=== PATIENT | female | born 1940 | race Caucasian/White ===

== ENCOUNTER 2023-08-02 09:20 | Observation (INO) | payer MEDICARE ==
[2023-08-02 10:37] LABS: Absolute Neutrophil Ct (ANC) 9.64 x10^3/uL (1.4-6.9); BASOPHIL % 0.4 % (0.0-0.4); Basophil (Absolute #) 0.04 x10^3/uL (0-0.4); Eosinophil % 0.4 % (0.00-5.0); Eosinophil (Absolute #) 0.05 x10^3/uL (0-0.5); Hematocrit 30.2 % (35-47); Hemoglobin 9.9 g/dL (12.0-16.0); IMMATURE GRAN # 0.04 x10^3u/L (0.00-0.03); IMMATURE GRAN % 0.4 % (0.00-0.4); Lymphocyte (Absolute #) 0.73 x10^3/uL (1.0-4.6); Lymphocytes % 6.5 % (24.0-44.0); Mean Cell Volume 94.7 fL (78-100); Mean Corpuscular Hgb Concent. 32.8 g/dL (32-36); Mean Platelet Volume 9.8 fL (7.5-11.0); Monocyte (Absolute #) 0.77 x10^3/uL (0.0-1.3); Monocytes % 6.8 % (0.0-12.0); Neutrophil % 85.5 % (36.0-66.0); Platelet Count 298 x10^3/uL (150-450); Red Blood Count 3.19 x10^6/uL (4.1-5.4); Red Cell Distribution Width 13.3 % (11.5-14.0); White Blood Count 11.3 x10^3/uL (4.0-10.5)
[2023-08-02 11:04] LABS: ALBUMIN 4.1 g/dL (3.5-5.0); ANION GAP 8.1 MEQ/L (5-15); BILIRUBIN,TOTAL 1.1 mg/dL (0.2-1.3); Calcium 8.9 mg/dL (8.4-10.2); Creatinine 1 0.96 mg/dL (0.52-1.04); EST GLOMERULAR FILTRATION RATE 59.1 ML/MIN; Potassium 4.2 mmol/L (3.5-5.1); Total Protein 8.2 g/dL (6.3-8.2)
--- NOTE | 2023-08-02 11:12 | ERPHSYRPT ---
- History of Present Illness Time Seen by Provider: 08/02/23 09:45 Source: patient Exam Limitations: no limitations Patient Subjective Stated Complaint: Pt c/o of tachycardia and feeling like her heart is going to explode Triage Nursing Assessment: Pt brought to the ER by EMS, hypertensive, tachycardic, denies pain, states that she feels a lot better than she did earlier this morning, pulses normal, edema to marilu lower ext which she states just started this week, appears weak and tired, wheezing heard in the left upper lobe Physician History: Patient 73-year-old female presents to our ED via EMS for evaluation of atrial fibrillation. Patient complains of heart palpitations and fast heart rate. Patient states "I feel like my heart will explode". Patient hypertensive upon arrival. No acute distress. Symptoms are mild to moderate in intensity. No specific worsening or improving factors. Patient voices no other complaints or concerns at this time. Portions of this note were created with voice recognition technology. There may be grammatical, spelling, punctuation or sound alike errors Timing/Duration: today Severity: moderate Modifying Factors: Improves With: nothing Associated Symptoms: denies symptoms Allergies/Adverse Reactions: No Known Drug Allergies Allergy (Verified 08/02/23 09:49) Home Medications: Amlodipine Besylate 5 mg [Norvasc 5 mg] 5 mg PO DAILY 08/02/23 [History] Aspirin EC 81 mg [Ecotrin 81 mg] 81 mg PO DAILY 08/02/23 [History] Atorvastatin Calcium [Lipitor] 20 mg PO DAILY 08/02/23 [History] Metformin HCl 850 mg [Glucophage 850 MG] 850 mg PO BID 08/02/23 [History] Metoprolol Tartrate 50 mg [Lopressor 50 MG] 50 mg PO BID 08/02/23 [History] Warfarin Sodium 5 mg [Jantoven] 0 mg PO DAILY 08/02/23 [History] Hx Influenza Vaccination/Date Given: No Hx Pneumococcal Vaccination/Date Given: No Travel Risk - International Travel Have you traveled outside of the country in past 3 weeks: No - Coronavirus Screening Are you exhibiting any of the following symptoms?: No Close contact with a COVID-19 positive Pt in past 14-21 Days: No - Vaccine Status Have you recieved a Covid-19 vaccination: No - Review of Systems Constitutional: No Symptoms, No Fever, No Chills Eyes: No Symptoms Ears, Nose, & Throat: No Symptoms Respiratory: No Symptoms, No Cough, No Dyspnea Cardiac: No Symptoms, No Chest Pain, No Edema, No Syncope Abdominal/Gastrointestinal: No Symptoms, No Abdominal Pain, No Nausea, No Vomiting, No Diarrhea Genitourinary Symptoms: No Symptoms, No Dysuria Musculoskeletal: No Symptoms, No Back Pain, No Neck Pain Skin: No Symptoms, No Rash Neurological: No Symptoms, No Dizziness, No Focal Weakness, No Sensory Changes Psychological: No Symptoms Endocrine: No Symptoms Hematologic/Lymphatic: No Symptoms Immunological/Allergic: No Symptoms All Other Systems: Reviewed and Negative - Past Medical History Pertinent Past Medical History: Yes Cardiac History: Arrhythmia, Hypertension Endocrine Medical History: Diabetes Type II - Past Surgical History Past Surgical History: Yes Gastrointestinal: Appendectomy Female Surgical History: Hysterectomy, Dilation & Curettage, Section - Social History Smoking Status: Current every day smoker Exposure to second hand smoke: Yes Drug Use: none Patient Lives Alone: Yes - Nursing Vital Signs Nursing Vital Signs: Initial Vital Signs O2 Sat by Pulse Oximetry 96 08/02/23 09:21 Pain Scale Pain Intensity 0 - Physical Exam General Appearance: no apparent distress, alert Eye Exam: PERRL/EOMI, eyes nml inspection Ears, Nose, Throat Exam: normal ENT inspection, TMs normal, pharynx normal, moist mucous membranes Neck Exam: normal inspection, non-tender, supple, full range of motion Respiratory Exam: normal breath sounds, lungs clear, airway intact, No respiratory distress Cardiovascular Exam: regular rate/rhythm, normal heart sounds, normal peripheral pulses Gastrointestinal/Abdomen Exam: soft, normal bowel sounds, No tenderness, No mass Back Exam: normal inspection, normal range of motion, No CVA tenderness, No vertebral tenderness Extremity Exam: normal inspection, normal range of motion, pelvis stable, other (Bilateral lower extremity pitting edema) Neurologic Exam: alert, oriented x 3, cooperative, normal mood/affect, nml cerebellar function, nml station & gait, sensation nml, No motor deficits Skin Exam: normal color, warm, dry, No rash Lymphatic Exam: No adenopathy SpO2 Interpretation: normal SpO2: 94 O2 Delivery: Room Air - Course Nursing assessment & vital signs reviewed: Yes EKG Interpreted by Me: RATE ([id number]), Sinus Tach, NORMAL AXIS, Left Bundle Branch Block - Radiology Exams Chest X-ray Interpretation: Teleradiologist Report (Chest x-ray reveals right minimal and left bibasilar infiltrate possible atelectasis.) Ordered Tests: Active Orders 24 hr Category Date Time Status Splitter Hand STAT Care 08/02/23 10:10 Active EKG-ER Only STAT Care 08/02/23 10:09 Active Pulse Oximetry (ED) STAT Care 08/02/23 10:09 Active CHEST 1 VIEW (PORTABLE) Stat Exams 08/02/23 10:10 Completed CBC W DIFF Stat Lab 08/02/23 10:34 Completed CMP Stat Lab 08/02/23 10:34 Completed MAG [MAGNESIUM] Stat Lab 08/02/23 10:00 Completed NT PRO BNPII Stat Lab 08/02/23 10:34 Completed PHOSPHOROUS Stat Lab 08/02/23 10:00 Completed PROTIME WITH INR Stat Lab 08/02/23 10:00 Completed PTT Stat Lab 08/02/23 10:00 Completed TROPONIN Q4H Lab 08/02/23 10:34 Completed TROPONIN Q4H Lab 08/02/23 14:15 Ordered TROPONIN Q4H Lab 08/02/23 18:15 Ordered Medication Summary Generic Name Dose Route Start Last Admin Trade Name Freq PRN Reason Stop Dose Admin Diltiazem HCl 100 mls @ 5 mls/hr 08/02/23 12:41 Cardizem Drip 100 Mg/100 Ml D5w IV 09/01/23 12:40 .Q20H PRN HEART RATE/ A-FIB Protocol 5 MG/HR Discontinued Medications Generic Name Dose Route Start Last Admin Trade Name Freq PRN Reason Stop Dose Admin Albuterol/Ipratropium 3 ml 08/02/23 12:31 Ipratropium/Albuterol Sulfate 3 Ml Ampul.Neb IH 08/02/23 12:32 STAT ONE Diltiazem HCl 10 mg 08/02/23 12:34 Diltiazem Hcl Iv 5 Mg/Ml Vial IV 08/02/23 12:35 STAT ONE Furosemide 20 mg 08/02/23 11:54 08/02/23 12:00 Furosemide 20 Mg/Vial IV 08/02/23 11:55 20 mg ONCE STA Administration Furosemide Confirm 08/02/23 11:59 Furosemide 20 Mg/Vial Administered 08/02/23 12:00 Dose 20 mg .ROUTE .STK-MED ONE Lab/Rad Data: Laboratory Result Diagrams 08/02/23 10:34 08/02/23 10:34 Laboratory Results 08/02/23 08/02/23 08/02/23 Range/Units 10:34 10:34 10:34 WBC 11.3 H (4.0-10.5) x10^3/uL RBC 3.19 L (4.1-5.4) x10^6/uL Hgb 9.9 L (12.0-16.0) g/dL Hct 30.2 L (35-47) % MCV 94.7 (78-100) fL MCH 31.0 (26-32) pg MCHC 32.8 (32-36) g/dL RDW 13.3 (11.5-14.0) % Plt Count 298 (150-450) x10^3/uL MPV 9.8 (7.5-11.0) fL Gran % 85.5 H (36.0-66.0) % Immature Gran % (Auto) 0.4 (0.00-0.4) % Nucleat RBC Rel Count 0.0 (0.00-0.1) % Eos # (Auto) 0.05 (0-0.5) x10^3/uL Immature Gran # (Auto) 0.04 H (0.00-0.03) x10^3u/L Absolute Lymphs (auto) 0.73 L (1.0-4.6) x10^3/uL Absolute Monos (auto) 0.77 (0.0-1.3) x10^3/uL Absolute Nucleated RBC 0.00 (0.00-0.01) x10^3u/L Lymphocytes % 6.5 L (24.0-44.0) % Monocytes % 6.8 (0.0-12.0) % Eosinophils % 0.4 (0.00-5.0) % Basophils % 0.4 (0.0-0.4) % Absolute Granulocytes 9.64 H (1.4-6.9) x10^3/uL Basophils # 0.04 (0-0.4) x10^3/uL PT (9.4-12.5) SECONDS INR (0.8-3.0) APTT (25.1-36.5) SECONDS Sodium 135 L (137-145) mmol/L Potassium 4.2 (3.5-5.1) mmol/L Chloride 100 (98-107) mmol/L Carbon Dioxide 31 H (22-30) mmol/L Anion Gap 8.1 (5-15) MEQ/L BUN 18 H (7-17) mg/dL Creatinine 0.96 (0.52-1.04) mg/dL Estimated GFR 59.1 ML/MIN Glucose 137 H (74-106) mg/dL Calcium 8.9 (8.4-10.2) mg/dL Phosphorus (2.5-4.5) mg/dL Magnesium (1.6-2.3) mg/dL Total Bilirubin 1.10 (0.2-1.3) mg/dL AST 28 (14-36) U/L ALT 23 (0-35) U/L Alkaline Phosphatase 94 (38-126) U/L Troponin I < 0.012 (0.000-0.034) ng/mL NT-Pro-B Natriuret Pep 5150 (<300) pg/mL Serum Total Protein 8.2 (6.3-8.2) g/dL Albumin 4.1 (3.5-5.0) g/dL 08/02/23 08/02/23 Range/Units 10:00 10:00 WBC (4.0-10.5) x10^3/uL RBC (4.1-5.4) x10^6/uL Hgb (12.0-16.0) g/dL Hct (35-47) % MCV (78-100) fL MCH (26-32) pg MCHC (32-36) g/dL RDW (11.5-14.0) % Plt Count (150-450) x10^3/uL MPV (7.5-11.0) fL Gran % (36.0-66.0) % Immature Gran % (Auto) (0.00-0.4) % Nucleat RBC Rel Count (0.00-0.1) % Eos # (Auto) (0-0.5) x10^3/uL Immature Gran # (Auto) (0.00-0.03) x10^3u/L Absolute Lymphs (auto) (1.0-4.6) x10^3/uL Absolute Monos (auto) (0.0-1.3) x10^3/uL Absolute Nucleated RBC (0.00-0.01) x10^3u/L Lymphocytes % (24.0-44.0) % Monocytes % (0.0-12.0) % Eosinophils % (0.00-5.0) % Basophils % (0.0-0.4) % Absolute Granulocytes (1.4-6.9) x10^3/uL Basophils # (0-0.4) x10^3/uL PT 52.2 H (9.4-12.5) SECONDS INR 5.43 H* (0.8-3.0) APTT 49.3 H (25.1-36.5) SECONDS Sodium (137-145) mmol/L Potassium (3.5-5.1) mmol/L Chloride (98-107) mmol/L Carbon Dioxide (22-30) mmol/L Anion Gap (5-15) MEQ/L BUN (7-17) mg/dL Creatinine (0.52-1.04) mg/dL Estimated GFR ML/MIN Glucose (74-106) mg/dL Calcium (8.4-10.2) mg/dL Phosphorus 3.3 (2.5-4.5) mg/dL Magnesium 1.6 (1.6-2.3) mg/dL Total Bilirubin (0.2-1.3) mg/dL AST (14-36) U/L ALT (0-35) U/L Alkaline Phosphatase (38-126) U/L Troponin I (0.000-0.034) ng/mL NT-Pro-B Natriuret Pep (<300) pg/mL Serum Total Protein (6.3-8.2) g/dL Albumin (3.5-5.0) g/dL - Progress Progress: improved Progress Note: Patient 73-year-old female presents to our ED with A-fib with RVR shortness of breath heart palpitations lower extremity swelling. Lasix administered. Patient currently on Coumadin for A-fib. Patient had an INR check yesterday that was 4 per patient. She held her a.m. dose of Coumadin today. Daughter at bedside. Patient denies chest pain. No nausea vomiting or diaphoresis. Pat ient will be admitted for further evaluation of A-fib with RVR. 08/02/23 12:24 Patient just completed a course of antibiotics for a pneumonia. 08/02/23 12:[address] Agustin at 11:40 who accepts admission to observation. Patient is a 83-year-old female presents to our ED in A-fib with RVR. Bilateral extremity pitting edema. Elevated BNP. Chest x-ray shows infiltrate possible atelectasis. Patient has completed a course of antibiotics for pneumonia. Slight wheezing on exam. CBC reveals leukocytosis 11.3. Hemoglobin 9.4. INR supratherapeutic at 5.43. BNP elevated at 5150. Bilateral lower extremity pitting edema. Patient received a dose of Lasix in our ED. Initial troponin negative. Patient received a Cardizem bolus and infusion. Albuterol administered for wheezing. Patient will require admission. Complexity of problem addressed is high severe exacerbation. Critical care time is 1 hour. Patient required Cardizem drip to rate control her tachycardia. Patient will require ICU admission for further evaluation and treatment. Complexity of data reviewed and analyzed is extensive. Test ordered. Test reviewed and analyzed. Clinical correlation made between findings and history and physical examination. Case and patient management [facility] who accepts admission to observation. Risk complication and or risk morbidity/mortality patient management is high. Patient will require hospitalization for further evaluation and treatment. Time spent to admit patient approximately 20 minutes. Plan of care established for shared decision making. Portions of this note were created with voice recognition technology. There may be grammatical, spelling, punctuation or sound alike errors 08/02/23 12:[address] Ajay Will see patient in: hospital (observation) Counseled pt/family regarding: lab results, diagnosis, rad results - Departure Departure Disposition: Observation Clinical Impression: Atrial fibrillation with RVR, Supratherapeutic INR, Wheezing, Leg swelling, Elevated brain natriuretic peptide (BNP) level Condition: Stable Critical Care Time: No Referrals: SURINDER BRICEÑO, DO [Primary Care Provider] - Follow up/PCP as directed
--- NOTE | 2023-08-02 11:23 | XRAY ---
Indication: Pain. Arrhythmia. Comparison: None Portable chest demonstrates mild right and minimal left bibasilar infiltrates/atelectasis/effusions. Remaining heart and upper lungs unremarkable. Bony thorax intact with osteopenia mild degenerative changes.
[2023-08-02 11:47] LABS: MAGNESIUM 1.6 mg/dL (1.6-2.3); PHOSPHOROUS 3.3 mg/dL (2.5-4.5)
[2023-08-02 11:52] LABS: PROTIME 52.2 SECONDS (9.4-12.5); PTT 49.3 SECONDS (25.1-36.5)
[2023-08-02 11:54] LABS: INR 5.43 (0.8-3.0)
[2023-08-02] MEDS ORDERED: Lasix 20 MG/2 ML IV STA (11:54)
[2023-08-02] MEDS ORDERED: Lasix 20 MG/2 ML ONE (11:59)
[2023-08-02] MEDS ORDERED: DUONEB 0.5-3 MG/3 ml Neb IH ONE (12:31)
[2023-08-02] MEDS ORDERED: Cardizem IV 50 MG/10 ML IV ONE ×2 (12:34→12:51)
[2023-08-02] MEDS ORDERED: CARDIZEM DRIP 100 MG/100 ML D5W 100 ML IV PRN ×2 (12:41→13:58)
[2023-08-02] MEDS ORDERED: CARDIZEM DRIP 100 MG/100 ML D5W 100 ML IV ONE (12:50)
[2023-08-02] MEDS ORDERED: PHARMACY DOSING REQUEST MC ONE (13:24)
--- NOTE | 2023-08-02 13:27 | PCM.HP ---
History of Present Illness - Chief Complaint Date: 08/02/23 History of Present Illness: is a 83 year old female with a pmhx of afib (on coumadin/metoprolol), DM2, HLD, HTN, and h/o of recent admission a week ago at [facility] for AFIB and pneumonia presented to ED 08/02/23 with complaint so shortness of breath and a fast heart rate. Patient states "I felt like my heart was beating so fast it was going to explode. It felt this way last week and I was told it was AFIB so I knew I better come in." Patient reports her AFIB has been managed by her PCP since her heeler retired. She recently switched PCP to Dr. Whitney. Patient also reports she has had exertional shortness of breath since she was diagnosed with pneumonia. She just recently finished antibiotics a few days ago. In ER, patient tachycardic with HR at 126, tachypneic, normotensive, and afebrile. CXR showing mild right and minimal left bibasilar infiltrates/atelectasis/effusions. Recently treated for pneumonia. Lab findings remarkable for leukocytosis with wbc at 11.3, INR at 5.43, sodium at 135, BNP at 5150, and trops wnl. Patient started on cardizem drip, given lasix IV, and duoneb. PCP: Chelo - Review of Systems Constitutional: No Symptoms Eyes: No Symptoms Ears, Nose, & Throat: No Symptoms Respiratory: Cough, Short Of Breath Cardiac: Palpitations, Other (fast heart rate) Abdominal/Gastrointestinal: No Symptoms Genitourinary Symptoms: No Symptoms Musculoskeletal: No Symptoms Skin: No Symptoms Neurological: No Symptoms Psychological: No Symptoms Endocrine: No Symptoms Hematologic/Lymphatic: No Symptoms Immunological/Allergic: No Symptoms Medications & Allergies Home Medications: Home Medication List Amlodipine Besylate 5 mg [Norvasc 5 mg] 5 mg PO DAILY 08/02/23 [History Confirmed 08/02/23] Aspirin EC 81 mg [Ecotrin 81 mg] 81 mg PO DAILY 08/02/23 [History Confirmed 08/02/23] Atorvastatin Calcium [Lipitor] 20 mg PO DAILY 08/02/23 [History Confirmed 08/02/23] Metformin HCl 850 mg [Glucophage 850 MG] 850 mg PO BID 08/02/23 [History Confirmed 08/02/23] Metoprolol Tartrate 50 mg [Lopressor 50 MG] 50 mg PO BID 08/02/23 [History Confirmed 08/02/23] Warfarin Sodium 5 mg [Jantoven] 0 mg PO DAILY 08/02/23 [History Confirmed 08/02] Allergies/Adverse Reactions: Allergies Allergy/AdvReac Type Severity Reaction Status Date / Time No Known Drug Allergies Allergy Verified 08/02/23 09:49 - Past Medical History Past Medical History: Yes Neurological History: No Pertinent History ENT History: No Pertinent History Cardiac History: Arrhythmia, Hypertension Endocrine Medical History: Diabetes Type II - Past Surgical History Past Surgical History: Yes GI Surgical History: Appendectomy Female Surgical History: Hysterectomy, Dilation & Curettage, Section - Social History Smoking Status: Current every day smoker Exposure to second hand smoke: Yes Alcohol: None Drug Use: none - Physical Exam Vital Signs: Vital Signs - 24 hr Temp Pulse Resp BP Pulse Ox 08/02/23 13:08 99 H 139/103 94 L 08/02/23 13:07 94 L 08/02/23 12:57 110 H 20 145/82 97 08/02/23 12:49 94 L 08/02/23 09:23 98.1 F 126 H 21 147/69 94 L 08/02/23 09:21 96 General Appearance: no apparent distress Neurologic Exam: alert, oriented x 3, cooperative Eye Exam: PERRL/EOMI Ears, Nose, Throat Exam: normal ENT inspection Neck Exam: normal inspection Respiratory Exam: crackles/rales (BLL fine crackles) Cardiovascular Exam: tachycardia, irregular, edema (BLE 2+ pitting) Gastrointestinal/Abdomen Exam: soft, normal bowel sounds Pelvic Exam: not done Rectal Exam: not done Back Exam: normal inspection Extremity Exam: normal inspection Skin Exam: pale Results - Labs Lab/Micro Results: Lab Results-Last 24 Hours 08/02/23 08/02/23 08/02/23 Range/Units 10:00 10:00 10:34 WBC 11.3 H (4.0-10.5) x10^3/uL RBC 3.19 L (4.1-5.4) x10^6/uL Hgb 9.9 L (12.0-16.0) g/dL Hct 30.2 L (35-47) % MCV 94.7 (78-100) fL MCH 31.0 (26-32) pg MCHC 32.8 (32-36) g/dL RDW 13.3 (11.5-14.0) % Plt Count 298 (150-450) x10^3/uL MPV 9.8 (7.5-11.0) fL Gran % 85.5 H (36.0-66.0) % Immature Gran % (Auto) 0.4 (0.00-0.4) % Nucleat RBC Rel Count 0.0 (0.00-0.1) % Eos # (Auto) 0.05 (0-0.5) x10^3/uL Immature Gran # (Auto) 0.04 H (0.00-0.03) x10^3u/L Absolute Lymphs (auto) 0.73 L (1.0-4.6) x10^3/uL Absolute Monos (auto) 0.77 (0.0-1.3) x10^3/uL Absolute Nucleated RBC 0.00 (0.00-0.01) x10^3u/L Lymphocytes % 6.5 L (24.0-44.0) % Monocytes % 6.8 (0.0-12.0) % Eosinophils % 0.4 (0.00-5.0) % Basophils % 0.4 (0.0-0.4) % Absolute Granulocytes 9.64 H (1.4-6.9) x10^3/uL Basophils # 0.04 (0-0.4) x10^3/uL PT 52.2 H (9.4-12.5) SECONDS INR 5.43 H* (0.8-3.0) APTT 49.3 H (25.1-36.5) SECONDS Sodium (137-145) mmol/L Potassium (3.5-5.1) mmol/L Chloride (98-107) mmol/L Carbon Dioxide (22-30) mmol/L Anion Gap (5-15) MEQ/L BUN (7-17) mg/dL Creatinine (0.52-1.04) mg/dL Estimated GFR ML/MIN Glucose (74-106) mg/dL Calcium (8.4-10.2) mg/dL Phosphorus 3.3 (2.5-4.5) mg/dL Magnesium 1.6 (1.6-2.3) mg/dL Total Bilirubin (0.2-1.3) mg/dL AST (14-36) U/L ALT (0-35) U/L Alkaline Phosphatase (38-126) U/L Troponin I (0.000-0.034) ng/mL NT-Pro-B Natriuret Pep (<300) pg/mL Serum Total Protein (6.3-8.2) g/dL Albumin (3.5-5.0) g/dL 08/02/23 08/02/23 Range/Units 10:34 10:34 WBC (4.0-10.5) x10^3/uL RBC (4.1-5.4) x10^6/uL Hgb (12.0-16.0) g/dL Hct (35-47) % MCV (78-100) fL MCH (26-32) pg MCHC (32-36) g/dL RDW (11.5-14.0) % Plt Count (150-450) x10^3/uL MPV (7.5-11.0) fL Gran % (36.0-66.0) % Immature Gran % (Auto) (0.00-0.4) % Nucleat RBC Rel Count (0.00-0.1) % Eos # (Auto) (0-0.5) x10^3/uL Immature Gran # (Auto) (0.00-0.03) x10^3u/L Absolute Lymphs (auto) (1.0-4.6) x10^3/uL Absolute Monos (auto) (0.0-1.3) x10^3/uL Absolute Nucleated RBC (0.00-0.01) x10^3u/L Lymphocytes % (24.0-44.0) % Monocytes % (0.0-12.0) % Eosinophils % (0.00-5.0) % Basophils % (0.0-0.4) % Absolute Granulocytes (1.4-6.9) x10^3/uL Basophils # (0-0.4) x10^3/uL PT (9.4-12.5) SECONDS INR (0.8-3.0) APTT (25.1-36.5) SECONDS Sodium 135 L (137-145) mmol/L Potassium 4.2 (3.5-5.1) mmol/L Chloride 100 (98-107) mmol/L Carbon Dioxide 31 H (22-30) mmol/L Anion Gap 8.1 (5-15) MEQ/L BUN 18 H (7-17) mg/dL Creatinine 0.96 (0.52-1.04) mg/dL Estimated GFR 59.1 ML/MIN Glucose 137 H (74-106) mg/dL Calcium 8.9 (8.4-10.2) mg/dL Phosphorus (2.5-4.5) mg/dL Magnesium (1.6-2.3) mg/dL Total Bilirubin 1.10 (0.2-1.3) mg/dL AST 28 (14-36) U/L ALT 23 (0-35) U/L Alkaline Phosphatase 94 (38-126) U/L Troponin I < 0.012 (0.000-0.034) ng/mL NT-Pro-B Natriuret Pep 5150 (<300) pg/mL Serum Total Protein 8.2 (6.3-8.2) g/dL Albumin 4.1 (3.5-5.0) g/dL - Radiology Impressions Radiology Exams & Impressions: Radiology Procedures Category Date Time Status CHEST 1 VIEW (PORTABLE) Stat Exams 08/02/23 10:10 Completed Assessment/Plan (1) Atrial fibrillation with RVR Current Visit: Yes Status: Acute Assessment & Plan: Atrial Fibrillation -Monitor on Telemetry -Cardizem drip at 5mg/hr, titrate, metoprolol once rate is controlled -rate control to target goal HR <85 bpm at rest if symptomatic, goal HR <110 bpm if asymptomatic -[id number]: 7 -On coumadin for Anticoagulation -PT/INR supratherapeutic at 5.43, will hold coumadin, pharmacy consult for dosing -optimize electrolytes for goal of K at 4 and magnesium at 2 -TSH level drawn 07/29/23 WNL, no need for repeat Code(s): I48.91 - UNSPECIFIED ATRIAL FIBRILLATION (2) Elevated brain natriuretic peptide (BNP) level Current Visit: Yes Status: Acute Assessment & Plan: -ECHO, no previous history per pt of CHF -Continue lasix 40mg daily Code(s): R79.89 - OTHER SPECIFIED ABNORMAL FINDINGS OF BLOOD CHEMISTRY (3) Supratherapeutic INR Current Visit: Yes Status: Acute Assessment & Plan: -Hold coumadin for now, pharmacy to dose Code(s): R79.1 - ABNORMAL COAGULATION PROFILE (4) Leukocytosis, unspecified Current Visit: Yes Status: Acute Assessment & Plan: -Trending down from recent WBC on 07/29 11.3<13.2, possibly due to recent pneumonia Code(s): D72.829 - ELEVATED WHITE BLOOD CELL COUNT, UNSPECIFIED (5) Edema of lower extremity Current Visit: Yes Status: Acute Assessment & Plan: -lasix 40mg daily Code(s): R60.0 - LOCALIZED EDEMA (6) Hypertension Current Visit: Yes Status: Acute Assessment & Plan: -stable will continue home meds amlodipine Code(s): I10 - ESSENTIAL (PRIMARY) HYPERTENSION (7) Hyperlipidemia Current Visit: Yes Status: Acute Assessment & Plan: -continue atorvastatin Code(s): E78.5 - HYPERLIPIDEMIA, UNSPECIFIED (8) Diabetes mellitus Current Visit: Yes Status: Acute Assessment & Plan: -on metformin -A1c 7.6 -SSI low dose Code(s): E11.9 - TYPE 2 DIABETES MELLITUS WITHOUT COMPLICATIONS
[2023-08-02] MEDS ORDERED: HUMALOG SQ PRN (14:09)
[2023-08-02] MEDS ORDERED: Zofran 4 MG/2 ML VIAL IV PRN (14:09)
[2023-08-02 15:30] LABS: Appearance Clear (Clear); Bilirubin Negative (Negative); Blood Trace (Negative); Glucose, Urine Negative (Negative); Ketones Negative (Negative); Leukocyte Esterase Negative (Negative); Nitrite Negative (Negative); Ph 6.5 (4.6-8.0); Protein,Urine Dip Trace (Negative); Specific Gravity <=1.005 (1.005-1.030); Urobilinogen 0.2 mg/dL (0.2)
[2023-08-02 15:36] LABS: Bacteria Rare /HPF (None Seen); Epithelial Cells Moderate /HPF (None Seen); Hyaline Casts NONE SEEN /LPF (0-2); RBC 0-2 /HPF (0-5); WBC 0-2 /HPF (0-5)
[2023-08-02 15:37] LABS: ADD URINE CULTURE? YES (NO)
[2023-08-02] MEDS ORDERED: Lopressor 25MG Tab PO PRN (15:49)
[2023-08-02] MEDS: Lopressor 50 MG PO SCH ×2 (15:52→21:06)
[2023-08-03 04:54] LABS: Hematocrit 29.2 % (35-47); Hemoglobin 9.6 g/dL (12.0-16.0); Mean Cell Volume 94.8 fL (78-100); Mean Corpuscular Hemoglobin 31.2 pg (26-32); Mean Corpuscular Hgb Concent. 32.9 g/dL (32-36); Mean Platelet Volume 10.1 fL (7.5-11.0); Platelet Count 288 x10^3/uL (150-450); Red Blood Count 3.08 x10^6/uL (4.1-5.4); Red Cell Distribution Width 13.9 % (11.5-14.0); White Blood Count 9.1 x10^3/uL (4.0-10.5)
[2023-08-03 05:10] LABS: ALBUMIN 3.6 g/dL (3.5-5.0); BILIRUBIN,TOTAL 0.9 mg/dL (0.2-1.3); Calcium 8.7 mg/dL (8.4-10.2); Creatinine 1 1.17 mg/dL (0.52-1.04); EST GLOMERULAR FILTRATION RATE 47.1 ML/MIN; Potassium 4.3 mmol/L (3.5-5.1); Total Protein 7.4 g/dL (6.3-8.2)
[2023-08-03 05:21] LABS: PROTIME 49.3 SECONDS (9.4-12.5)
[2023-08-03 05:23] LABS: INR 5.1 (0.8-3.0)
[2023-08-03] MEDS: DUONEB 0.5-3 MG/3 ml Neb IH PRN (08:55)
[2023-08-03] MEDS: Lopressor 50 MG PO SCH ×2 (09:13→21:33)
[2023-08-03] MEDS ORDERED: Lasix 40 MG/4 ML IV SCH (10:00)
--- NOTE | 2023-08-03 11:53 | ECHO ---
DATE OF PROCEDURE: 08/02/2023 CLINICAL INFORMATION: Elevated BNP. The M-mode 2D, and Doppler echocardiogram including color flow Doppler shows the left ventricle is normal in size. There is no thrombus present. The wall thickness is normal. There is normal contractility of the left ventricle. The ejection fraction is calculated to be 70%. The right ventricle is dilated. The left atrium is mildly dilated. The interatrial septum is intact. The right atrium is dilated. The aortic valve opens adequately. It is sclerotic. There is mild aortic regurgitation. There is mitral valvular calcification associated with mild to moderate mitral regurgitation. There is moderate tricuspid regurgitation. The right ventricular systolic pressure is calculated to be 58 mm of Mercury. There is mild pulmonic regurgitation. The aortic root is normal. There is no pericardial effusion present. The heart rate is 115 beats/minute. IMPRESSION: 1) NORMAL CONTRACTILITY OF THE LEFT VENTRICLE. 2) MILD LEFT ATRIAL DILATATION. 3) RIGHT ATRIAL DILATATION. 4) MILD AORTIC REGURGITATION. 5) MILD TO MODERATE MITRAL REGURGITATION. 6) MODERATE TRICUSPID REGURGITATION. 7) SEVERE PULMONARY HYPERTENSION. 8) MILD PULMONIC REGURGITATION. 9) TACHYCARDIA.
--- NOTE | 2023-08-03 12:40 | PCM.NOTE ---
Date and Time: 08/03/23 1234 Subjective Assessment: is a 83 year old female with a pmhx of afib (on coumadin/metoprolol), DM2, HLD, HTN, and h/o of recent admission a week ago at [facility] for AFIB and pneumonia presented to ED 08/02/23 with complaint so shortness of breath and a fast heart rate admitted for AFIB RVR and supratherapeutic INR, initially treated with Cardizem drip, now being treated with metoprolol 50mg bid as well as metoprolol 25mg q6h prn with HR >110. Coumadin Held, INR not at therapeutic range. Overnight events noted of patient's oxygen saturation dropping into the 80's upon ambulation. During interview patient spo2 @ 85% on RA at rest. Patient recently with pneumonia, has previously refused home oxygen. Patient with exp wheezing Bilaterally upon auscultation, advised the importance of keeping oxygen on and the need for home oxygen on discharge. Patient states she will think about it. - Review of Systems Constitutional: No Symptoms Eyes: No Symptoms Ears, Nose, & Throat: No Symptoms Respiratory: Cough, Short Of Breath, Wheezing Cardiac: Edema (trace ble) Abdominal/Gastrointestinal: No Symptoms Genitourinary Symptoms: No Symptoms Musculoskeletal: No Symptoms Skin: No Symptoms Neurological: No Symptoms Psychological: No Symptoms Endocrine: No Symptoms Objective Exam General Appearance: no apparent distress Neurologic Exam: alert, oriented x 3, cooperative Skin Exam: pale Eye Exam: PERRL Respiratory Exam: crackles/rales, wheezing Cardiovascular Exam: other (irregular HR) Gastrointestinal/Abdomen Exam: soft, normal bowel sounds Extremity Exam: normal inspection Back Exam: normal inspection Pelvic Exam: deferred Rectal Exam: deferred OBJECTIVE DATA Vital Signs: Vital Signs - 24 hr Temp Pulse Resp BP BP Pulse Ox 08/03/23 11:30 98.3 F 95 H 18 130/66 94 L 08/03/23 08:59 80 14 96 08/03/23 07:43 79 08/03/23 07:26 96.9 F 74 16 153/99 97 08/03/23 06:48 74 18 96 08/03/23 04:00 98.1 F 82 17 127/68 94 L 08/03/23 00:01 68 08/03/23 00:00 98.5 F 72 15 147/66 94 L 08/02/23 20:00 98.4 F 68 22 121/62 94 L 08/02/23 19:08 61 18 94 L 08/02/23 16:00 93 H 20 128/69 94 L 08/02/23 15:57 93 H 18 125/59 08/02/23 15:44 109 H 16 96 08/02/23 15:00 108 H 16 125/59 94 L 08/02/23 14:11 96 08/02/23 14:00 112 H 16 137/89 95 08/02/23 13:31 112 H 16 151/76 95 08/02/23 13:22 95 08/02/23 13:11 112 H 16 151/76 08/02/23 13:08 99 H 139/103 94 L 08/02/23 13:07 94 L 08/02/23 12:57 110 H 20 145/82 97 08/02/23 12:49 94 L Pain Assessment - Last Documented Pain Intensity 0 Intake and Output: Intake & Output 08/01/23 08/02/23 08/03/23 08/04/23 11:59 11:59 11:59 11:59 Intake Total 720 Output Total 1400 Balance -680 Weight 55.338 kg 54.9 kg Lab Results: Lab Results-Last 24 Hours 08/02/23 08/02/23 08/02/23 Range/Units 14:00 15:10 16:21 WBC (4.0-10.5) x10^3/uL RBC (4.1-5.4) x10^6/uL Hgb (12.0-16.0) g/dL Hct (35-47) % MCV (78-100) fL MCH (26-32) pg MCHC (32-36) g/dL RDW (11.5-14.0) % Plt Count (150-450) x10^3/uL MPV (7.5-11.0) fL PT (9.4-12.5) SECONDS INR (0.8-3.0) Sodium (137-145) mmol/L Potassium (3.5-5.1) mmol/L Chloride (98-107) mmol/L Carbon Dioxide (22-30) mmol/L Anion Gap (5-15) MEQ/L BUN (7-17) mg/dL Creatinine (0.52-1.04) mg/dL Estimated GFR ML/MIN Glucose (74-106) mg/dL POC Glucometer 183 H (74 to 106) mg/dL Calcium (8.4-10.2) mg/dL Total Bilirubin (0.2-1.3) mg/dL AST (14-36) U/L ALT (0-35) U/L Alkaline Phosphatase (38-126) U/L Troponin I < 0.012 (0.000-0.034) ng/mL Serum Total Protein (6.3-8.2) g/dL Albumin (3.5-5.0) g/dL Urine Color Yellow (Yellow) Urine Appearance Clear (Clear) Urine pH 6.5 (4.6-8.0) Ur Specific [place] <=1.005 (1.005-1.030) Urine Protein Trace A (Negative) Urine Glucose (UA) Negative (Negative) mg/dL Urine Ketones Negative (Negative) Urine Blood Trace (Negative) Urine Nitrite Negative (Negative) Urine Bilirubin Negative (Negative) Urine Urobilinogen 0.2 (0.2) mg/dL Ur Leukocyte Esterase Negative (Negative) U Hyaline Cast (Auto) NONE SEEN (0-2) /LPF Urine Microscopic RBC 0-2 (0-5) /HPF Urine Microscopic WBC 0-2 (0-5) /HPF Ur Epithelial Cells Moderate A (None Seen) /HPF Urine Bacteria Rare A (None Seen) /HPF Urine Culture Reflexed YES (NO) 08/02/23 08/02/23 08/03/23 Range/Units 18:29 20:42 04:43 WBC 9.1 (4.0-10.5) x10^3/uL RBC 3.08 L (4.1-5.4) x10^6/uL Hgb 9.6 L (12.0-16.0) g/dL Hct 29.2 L (35-47) % MCV 94.8 (78-100) fL MCH 31.2 (26-32) pg MCHC 32.9 (32-36) g/dL RDW 13.9 (11.5-14.0) % Plt Count 288 (150-450) x10^3/uL MPV 10.1 (7.5-11.0) fL PT (9.4-12.5) SECONDS INR (0.8-3.0) Sodium (137-145) mmol/L Potassium (3.5-5.1) mmol/L Chloride (98-107) mmol/L Carbon Dioxide (22-30) mmol/L Anion Gap (5-15) MEQ/L BUN (7-17) mg/dL Creatinine (0.52-1.04) mg/dL Estimated GFR ML/MIN Glucose (74-106) mg/dL POC Glucometer 174 H (74 to 106) mg/dL Calcium (8.4-10.2) mg/dL Total Bilirubin (0.2-1.3) mg/dL AST (14-36) U/L ALT (0-35) U/L Alkaline Phosphatase (38-126) U/L Troponin I < 0.012 (0.000-0.034) ng/mL Serum Total Protein (6.3-8.2) g/dL Albumin (3.5-5.0) g/dL Urine Color (Yellow) Urine Appearance (Clear) Urine pH (4.6-8.0) Ur Specific [place] (1.005-1.030) Urine Protein (Negative) Urine Glucose (UA) (Negative) mg/dL Urine Ketones (Negative) Urine Blood (Negative) Urine Nitrite (Negative) Urine Bilirubin (Negative) Urine Urobilinogen (0.2) mg/dL Ur Leukocyte Esterase (Negative) U Hyaline Cast (Auto) (0-2) /LPF Urine Microscopic RBC (0-5) /HPF Urine Microscopic WBC (0-5) /HPF Ur Epithelial Cells (None Seen) /HPF Urine Bacteria (None Seen) /HPF Urine Culture Reflexed (NO) 08/03/23 08/03/23 08/03/23 Range/Units 04:43 04:43 07:14 WBC (4.0-10.5) x10^3/uL RBC (4.1-5.4) x10^6/uL Hgb (12.0-16.0) g/dL Hct (35-47) % MCV (78-100) fL MCH (26-32) pg MCHC (32-36) g/dL RDW (11.5-14.0) % Plt Count (150-450) x10^3/uL MPV (7.5-11.0) fL PT 49.3 H (9.4-12.5) SECONDS INR 5.10 H* (0.8-3.0) Sodium 136 L (137-145) mmol/L Potassium 4.3 (3.5-5.1) mmol/L Chloride 100 (98-107) mmol/L Carbon Dioxide 30 (22-30) mmol/L Anion Gap 10.0 (5-15) MEQ/L BUN 22 H (7-17) mg/dL Creatinine 1.17 H (0.52-1.04) mg/dL Estimated GFR 47.1 ML/MIN Glucose 142 H (74-106) mg/dL POC Glucometer 136 H (74 to 106) mg/dL Calcium 8.7 (8.4-10.2) mg/dL Total Bilirubin 0.90 (0.2-1.3) mg/dL AST 29 (14-36) U/L ALT 22 (0-35) U/L Alkaline Phosphatase 86 (38-126) U/L Troponin I (0.000-0.034) ng/mL Serum Total Protein 7.4 (6.3-8.2) g/dL Albumin 3.6 (3.5-5.0) g/dL Urine Color (Yellow) Urine Appearance (Clear) Urine pH (4.6-8.0) Ur Specific [place] (1.005-1.030) Urine Protein (Negative) Urine Glucose (UA) (Negative) mg/dL Urine Ketones (Negative) Urine Blood (Negative) Urine Nitrite (Negative) Urine Bilirubin (Negative) Urine Urobilinogen (0.2) mg/dL Ur Leukocyte Esterase (Negative) U Hyaline Cast (Auto) (0-2) /LPF Urine Microscopic RBC (0-5) /HPF Urine Microscopic WBC (0-5) /HPF Ur Epithelial Cells (None Seen) /HPF Urine Bacteria (None Seen) /HPF Urine Culture Reflexed (NO) 08/03/23 Range/Units 11:24 WBC (4.0-10.5) x10^3/uL RBC (4.1-5.4) x10^6/uL Hgb (12.0-16.0) g/dL Hct (35-47) % MCV (78-100) fL MCH (26-32) pg MCHC (32-36) g/dL RDW (11.5-14.0) % Plt Count (150-450) x10^3/uL MPV (7.5-11.0) fL PT (9.4-12.5) SECONDS INR (0.8-3.0) Sodium (137-145) mmol/L Potassium (3.5-5.1) mmol/L Chloride (98-107) mmol/L Carbon Dioxide (22-30) mmol/L Anion Gap (5-15) MEQ/L BUN (7-17) mg/dL Creatinine (0.52-1.04) mg/dL Estimated GFR ML/MIN Glucose (74-106) mg/dL POC Glucometer 263 H (74 to 106) mg/dL Calcium (8.4-10.2) mg/dL Total Bilirubin (0.2-1.3) mg/dL AST (14-36) U/L ALT (0-35) U/L Alkaline Phosphatase (38-126) U/L Troponin I (0.000-0.034) ng/mL Serum Total Protein (6.3-8.2) g/dL Albumin (3.5-5.0) g/dL Urine Color (Yellow) Urine Appearance (Clear) Urine pH (4.6-8.0) Ur Specific [place] (1.005-1.030) Urine Protein (Negative) Urine Glucose (UA) (Negative) mg/dL Urine Ketones (Negative) Urine Blood (Negative) Urine Nitrite (Negative) Urine Bilirubin (Negative) Urine Urobilinogen (0.2) mg/dL Ur Leukocyte Esterase (Negative) U Hyaline Cast (Auto) (0-2) /LPF Urine Microscopic RBC (0-5) /HPF Urine Microscopic WBC (0-5) /HPF Ur Epithelial Cells (None Seen) /HPF Urine Bacteria (None Seen) /HPF Urine Culture Reflexed (NO) Radiology Exams: Radiology Procedures Category Date Time Status CHEST 1 VIEW (PORTABLE) Stat Exams 08/02/23 10:10 Completed ECHO W/2D AND DOPPLER [US] Stat Exams 08/02/23 13:57 Draft Multi-Disciplinary Progress Notes: Multi-Disciplinary Progress Notes 08/03/23 10:34 Case Management Note by Sommer Gonsalez REFERRAL FAXED TO [facility] PER PATIENT REQUEST. THEY WILL NEED NOTIFIED AT TIME OF DC AT [phone]. THEY WILL NEED FAXED THE DC INSTRUCTIONS, DC MED LIST AND DC SUMMARY TO [phone] Initialized on 08/03/23 10:34 - END OF NOTE Assessment/Plan (1) Atrial fibrillation with RVR Current Visit: Yes Status: Acute Assessment & Plan: Atrial Fibrillation 08/02: -Monitor on Telemetry -Cardizem drip at 5mg/hr, titrate, metoprolol once rate is controlled -rate control to target goal HR <85 bpm at rest if symptomatic, goal HR <110 bpm if asymptomatic -[id number]: 7 -On coumadin for Anticoagulation -PT/INR supratherapeutic at 5.43, will hold coumadin, pharmacy consult for dosing -optimize electrolytes for goal of K at 4 and magnesium at 2 -TSH level drawn 07/29/23 WNL, no need for repeat 08/03: -Echo reviewed: EF 70% IMPRESSION: 1) NORMAL CONTRACTILITY OF THE LEFT VENTRICLE. 2) MILD LEFT ATRIAL DILATATION. 3) RIGHT ATRIAL DILATATION. 4) MILD AORTIC REGURGITATION. 5) MILD TO MODERATE MITRAL REGURGITATION. 6) MODERATE TRICUSPID REGURGITATION. 7) SEVERE PULMONARY HYPERTENSION. 8) MILD PULMONIC REGURGITATION. 9) TACHYCARDIA. -Cardizem drip d/c'd will continue with metoprolol 50mg bid with 25mg Q6h prn -Continue to hold coumadin until INR at therapeutic level -Cards consult pending, appreciate recs Code(s): I48.91 - UNSPECIFIED ATRIAL FIBRILLATION (2) Elevated brain natriuretic peptide (BNP) level Current Visit: Yes Status: Acute Assessment & Plan: -ECHO as noted, no previous history per pt of CHF -Continue lasix 40mg daily Code(s): R79.89 - OTHER SPECIFIED ABNORMAL FINDINGS OF BLOOD CHEMISTRY (3) Supratherapeutic INR Current Visit: Yes Status: Acute Assessment & Plan: - continue to hold INR Code(s): R79.1 - ABNORMAL COAGULATION PROFILE (4) Leukocytosis, unspecified Current Visit: Yes Status: Resolved Assessment & Plan: -resolved Code(s): D72.829 - ELEVATED WHITE BLOOD CELL COUNT, UNSPECIFIED (5) Edema of lower extremity Current Visit: Yes Status: Acute Assessment & Plan: -continue lasix, improving Code(s): R60.0 - LOCALIZED EDEMA (6) Hypertension Current Visit: Yes Status: Acute Assessment & Plan: -stable will continue home meds amlodipine Code(s): I10 - ESSENTIAL (PRIMARY) HYPERTENSION (7) Hyperlipidemia Current Visit: Yes Status: Acute Assessment & Plan: -continue atorvastatin Code(s): E78.5 - HYPERLIPIDEMIA, UNSPECIFIED (8) Diabetes mellitus Current Visit: Yes Status: Acute Assessment & Plan: -on metformin -A1c 7.6 -SSI low dose Code(s): E11.9 - TYPE 2 DIABETES MELLITUS WITHOUT COMPLICATIONS
[2023-08-03] MEDS: Glucophage 850 MG PO SCH (17:14)
[2023-08-03] MEDS: ENTRESTO 49 MG-51 MG TABLET PO SCH (21:33)
[2023-08-04] MEDS: DUONEB 0.5-3 MG/3 ml Neb IH PRN (01:52)
[2023-08-04 07:07] LABS: Absolute Neutrophil Ct (ANC) 11.18 x10^3/uL (1.4-6.9); BASOPHIL % 0.5 % (0.0-0.4); Basophil (Absolute #) 0.07 x10^3/uL (0-0.4); Eosinophil % 0.8 % (0.00-5.0); Eosinophil (Absolute #) 0.11 x10^3/uL (0-0.5); Hematocrit 30.5 % (35-47); Hemoglobin 9.8 g/dL (12.0-16.0); IMMATURE GRAN # 0.04 x10^3u/L (0.00-0.03); IMMATURE GRAN % 0.3 % (0.00-0.4); Lymphocyte (Absolute #) 0.64 x10^3/uL (1.0-4.6); Lymphocytes % 4.9 % (24.0-44.0); Mean Cell Volume 95.9 fL (78-100); Mean Corpuscular Hemoglobin 30.8 pg (26-32); Mean Corpuscular Hgb Concent. 32.1 g/dL (32-36); Mean Platelet Volume 10.1 fL (7.5-11.0); Monocyte (Absolute #) 0.93 x10^3/uL (0.0-1.3); Monocytes % 7.2 % (0.0-12.0); Neutrophil % 86.3 % (36.0-66.0); Platelet Count 297 x10^3/uL (150-450); Red Blood Count 3.18 x10^6/uL (4.1-5.4); Red Cell Distribution Width 13.8 % (11.5-14.0)
[2023-08-04] MEDS: Glucophage 850 MG PO SCH ×2 (08:17→17:12)
--- NOTE | 2023-08-04 09:06 | XRAY ---
Indication: Pain and swelling. No known injury. Comparison: None 2 view right knee demonstrates osteopenia, moderate tricompartmental degenerative changes greatest medial compartment with heterotopic ossifications, nonspecific effusion, and extensive scattered vascular calcifications. No other bony, articular, or soft tissue abnormalities.
[2023-08-04 09:19] LABS: INR 2.39 (0.8-3.0); PROTIME 24.4 SECONDS (9.4-12.5)
[2023-08-04] MEDS: ECOTRIN 81 MG PO SCH (09:29)
[2023-08-04] MEDS: Lopressor 50 MG PO SCH ×2 (09:30→21:26)
[2023-08-04] MEDS: TYLENOL 325 MG PO PRN ×2 (09:30→17:15)
[2023-08-04] MEDS: ENTRESTO 49 MG-51 MG TABLET PO SCH ×2 (09:30→21:26)
[2023-08-04 14:49] LABS: ALBUMIN 3.4 g/dL (3.5-5.0); ANION GAP 14.1 MEQ/L (5-15); BILIRUBIN,TOTAL 0.9 mg/dL (0.2-1.3); Calcium 8.2 mg/dL (8.4-10.2); Creatinine 1 0.97 mg/dL (0.52-1.04); EST GLOMERULAR FILTRATION RATE 58.4 ML/MIN; Potassium 3.9 mmol/L (3.5-5.1)
--- NOTE | 2023-08-04 15:24 | PCM.NOTE ---
Date and Time: 08/04/23 151 Subjective Assessment: is a 83 year old female with a pmhx of afib (on coumadin/metoprolol), DM2, HLD, HTN, and h/o of recent admission a week ago at [facility] for AFIB and pneumonia presented to ED 08/02/23 with complaint so shortness of breath and a fast heart rate admitted for AFIB RVR and supratherapeutic INR, initially treated with Cardizem drip, now being treated with metoprolol 50mg bid as well as metoprolol 25mg q6h prn with HR >110. Coumadin initially Held, INR not at therapeutic range, she will continue on metoprolol as ordered. Today, INR in therapeutic range, Cardiology consulted with the following changes: amlodipine has been d/c'd, Entrestro added, Eliquis will replace coumadin. Poor air move ment on auscultation but no wheezing today, patient still requiring oxygen. During interview patient states she does not feel safe to return home and would like rehab near her daughter in [place]. Patient also endorses knee pain with mild swelling. XR negative for acute process. - Review of Systems Constitutional: No Symptoms Eyes: No Symptoms Ears, Nose, & Throat: No Symptoms Respiratory: Cough, Short Of Breath Cardiac: No Symptoms Abdominal/Gastrointestinal: No Symptoms Genitourinary Symptoms: No Symptoms Musculoskeletal: Joint Pain Skin: No Symptoms Neurological: No Symptoms Psychological: No Symptoms Immunological/Allergic: No Symptoms Objective Exam General Appearance: no apparent distress Neurologic Exam: alert, oriented x 3, cooperative Skin Exam: pale Eye Exam: PERRL Respiratory Exam: diminished breath sounds Cardiovascular Exam: regular rate/rhythm, normal heart sounds Gastrointestinal/Abdomen Exam: soft, normal bowel sounds Extremity Exam: joint swelling (Right knee edema) Back Exam: normal inspection OBJECTIVE DATA Vital Signs: Vital Signs - 24 hr Temp Pulse Resp BP Pulse Ox 08/04/23 11:24 97.9 F 110 H 16 125/70 95 08/04/23 07:12 98.8 F 101 H 16 133/59 94 L 08/04/23 07:05 94 H 16 95 08/04/23 04:00 98.4 F 92 H 26 H 140/67 92 L 08/04/23 01:52 85 24 95 08/04/23 00:00 97.7 F 87 22 134/60 96 08/03/23 20:18 78 18 97 08/03/23 19:05 98.0 F 84 17 128/60 98 08/03/23 18:59 98 08/03/23 16:00 97.0 F 96 H 18 125/70 97 Pain Assessment - Last Documented Pain Intensity 6 Pain Scale Used 0-10 Pain Scale Intake and Output: Intake & Output 08/02/23 08/03/23 08/04/23 08/05/23 11:59 11:59 11:59 11:59 Intake Total 720 840 Output Total 1400 1300 Balance -680 -460 Weight 55.338 kg 54.9 kg Lab Results: Lab Results-Last 24 Hours 08/03/23 08/03/23 08/04/23 Range/Units 16:29 20:22 04:00 WBC (4.0-10.5) x10^3/uL RBC (4.1-5.4) x10^6/uL Hgb (12.0-16.0) g/dL Hct (35-47) % MCV (78-100) fL MCH (26-32) pg MCHC (32-36) g/dL RDW (11.5-14.0) % Plt Count (150-450) x10^3/uL MPV (7.5-11.0) fL Gran % (36.0-66.0) % Immature Gran % (Auto) (0.00-0.4) % Nucleat RBC Rel Count (0.00-0.1) % Eos # (Auto) (0-0.5) x10^3/uL Immature Gran # (Auto) (0.00-0.03) x10^3u/L Absolute Lymphs (auto) (1.0-4.6) x10^3/uL Absolute Monos (auto) (0.0-1.3) x10^3/uL Absolute Nucleated RBC (0.00-0.01) x10^3u/L Lymphocytes % (24.0-44.0) % Monocytes % (0.0-12.0) % Eosinophils % (0.00-5.0) % Basophils % (0.0-0.4) % Absolute Granulocytes (1.4-6.9) x10^3/uL Basophils # (0-0.4) x10^3/uL PT 24.4 H (9.4-12.5) SECONDS INR 2.39 D (0.8-3.0) Sodium (137-145) mmol/L Potassium (3.5-5.1) mmol/L Chloride (98-107) mmol/L Carbon Dioxide (22-30) mmol/L Anion Gap (5-15) MEQ/L BUN (7-17) mg/dL Creatinine (0.52-1.04) mg/dL Estimated GFR ML/MIN Glucose (74-106) mg/dL POC Glucometer 106 117 H (74 to 106) mg/dL Uric Acid (2.6-6.0) mg/dL Calcium (8.4-10.2) mg/dL Total Bilirubin (0.2-1.3) mg/dL AST (14-36) U/L ALT (0-35) U/L Alkaline Phosphatase (38-126) U/L Serum Total Protein (6.3-8.2) g/dL Albumin (3.5-5.0) g/dL 08/04/23 08/04/23 08/04/23 Range/Units 04:00 07:01 07:01 WBC 13.0 H (4.0-10.5) x10^3/uL RBC 3.18 L (4.1-5.4) x10^6/uL Hgb 9.8 L (12.0-16.0) g/dL Hct 30.5 L (35-47) % MCV 95.9 (78-100) fL MCH 30.8 (26-32) pg MCHC 32.1 (32-36) g/dL RDW 13.8 (11.5-14.0) % Plt Count 297 (150-450) x10^3/uL MPV 10.1 (7.5-11.0) fL Gran % 86.3 H (36.0-66.0) % Immature Gran % (Auto) 0.3 (0.00-0.4) % Nucleat RBC Rel Count 0.0 (0.00-0.1) % Eos # (Auto) 0.11 (0-0.5) x10^3/uL Immature Gran # (Auto) 0.04 H (0.00-0.03) x10^3u/L Absolute Lymphs (auto) 0.64 L (1.0-4.6) x10^3/uL Absolute Monos (auto) 0.93 (0.0-1.3) x10^3/uL Absolute Nucleated RBC 0.00 (0.00-0.01) x10^3u/L Lymphocytes % 4.9 L (24.0-44.0) % Monocytes % 7.2 (0.0-12.0) % Eosinophils % 0.8 (0.00-5.0) % Basophils % 0.5 (0.0-0.4) % Absolute Granulocytes 11.18 H (1.4-6.9) x10^3/uL Basophils # 0.07 (0-0.4) x10^3/uL PT (9.4-12.5) SECONDS INR (0.8-3.0) Sodium 136 L (137-145) mmol/L Potassium 3.9 (3.5-5.1) mmol/L Chloride 100 (98-107) mmol/L Carbon Dioxide 26 (22-30) mmol/L Anion Gap 14.1 (5-15) MEQ/L BUN 22 H (7-17) mg/dL Creatinine 0.97 (0.52-1.04) mg/dL Estimated GFR 58.4 ML/MIN Glucose 137 H (74-106) mg/dL POC Glucometer (74 to 106) mg/dL Uric Acid 6.1 H (2.6-6.0) mg/dL Calcium 8.2 L (8.4-10.2) mg/dL Total Bilirubin 0.90 (0.2-1.3) mg/dL AST 29 (14-36) U/L ALT 24 (0-35) U/L Alkaline Phosphatase 86 (38-126) U/L Serum Total Protein 7.0 (6.3-8.2) g/dL Albumin 3.4 L (3.5-5.0) g/dL 08/04/23 08/04/23 Range/Units 07:04 11:18 WBC (4.0-10.5) x10^3/uL RBC (4.1-5.4) x10^6/uL Hgb (12.0-16.0) g/dL Hct (35-47) % MCV (78-100) fL MCH (26-32) pg MCHC (32-36) g/dL RDW (11.5-14.0) % Plt Count (150-450) x10^3/uL MPV (7.5-11.0) fL Gran % (36.0-66.0) % Immature Gran % (Auto) (0.00-0.4) % Nucleat RBC Rel Count (0.00-0.1) % Eos # (Auto) (0-0.5) x10^3/uL Immature Gran # (Auto) (0.00-0.03) x10^3u/L Absolute Lymphs (auto) (1.0-4.6) x10^3/uL Absolute Monos (auto) (0.0-1.3) x10^3/uL Absolute Nucleated RBC (0.00-0.01) x10^3u/L Lymphocytes % (24.0-44.0) % Monocytes % (0.0-12.0) % Eosinophils % (0.00-5.0) % Basophils % (0.0-0.4) % Absolute Granulocytes (1.4-6.9) x10^3/uL Basophils # (0-0.4) x10^3/uL PT (9.4-12.5) SECONDS INR (0.8-3.0) Sodium (137-145) mmol/L Potassium (3.5-5.1) mmol/L Chloride (98-107) mmol/L Carbon Dioxide (22-30) mmol/L Anion Gap (5-15) MEQ/L BUN (7-17) mg/dL Creatinine (0.52-1.04) mg/dL Estimated GFR ML/MIN Glucose (74-106) mg/dL POC Glucometer 146 H 190 H (74 to 106) mg/dL Uric Acid (2.6-6.0) mg/dL Calcium (8.4-10.2) mg/dL Total Bilirubin (0.2-1.3) mg/dL AST (14-36) U/L ALT (0-35) U/L Alkaline Phosphatase (38-126) U/L Serum Total Protein (6.3-8.2) g/dL Albumin (3.5-5.0) g/dL Radiology Exams: Radiology Procedures Category Date Time Status KNEE (1 OR 2 VIEW) Stat Exams 08/04/23 08:33 Completed Multi-Disciplinary Progress Notes: Multi-Disciplinary Progress Notes 08/04/23 11:49 Case Management Note by Zenaida Schneider S/W IMANI AT [facility]. THEY HAVE ACCEPTED PATIENT AND ARE WORKING ON PRECERT NOW. Initialized on 08/04/23 11:49 - END OF NOTE 08/04/23 10:24 Case Management Note by Sommer Gonsalez PAPERWORK COMPLETE AT THIS TIME- NO LEVEL II REQUIRED. COPIES FAXED TO [facility] AND PLACED ON CHART Initialized on 08/04/23 10:24 - END OF NOTE 08/04/23 10:00 Case Management Note by Zenaida Schneider REFERRAL FAXED TO [facility]. FOR POSSIBLE REHAB STAY Initialized on 08/04/23 10:00 - END OF NOTE 08/04/23 09:38 Physical Therapy Note by Yoandy(L#[id number])Valarie PT. WAS SEEN BY P.T. THIS A.M. IN BEDSIDE RECLINER UPON P.T. ARRIVAL TO ROOM. PT. C/O R KNEE PN MEDIAL JOINT LINE AREA THAT JUST BEGAN THIS A.M. BUT HAPPENS @ HOME INTERMITTENTLY. RATES R KNEE PN @ 8/10. NOTED EDEMA R MEDIAL KNEE AND PATELLA WELL LARGE OSTEOPHYTE MEDIAL KNEE. PT. REPORTS SHE DOES HAVE A ROLLATOR @ HOME BUT DOES NOT USE IT IN HER HOME BECAUSE IT DOES NOT FIT WELL D/T CLUTTER. PT. USES STC IN HOME MOST OF THE TIME. O2 SATS 95% @ REST ON 2 L. PT. AGREEABLE TO WORK W/ P.T. PT. REPORTS SHE IS CONCERNED ABOUT GOING HOME AT THIS TIME D/T KNEE PN WELL CONCERNS ABOUT CARING FOR HER CAT. PT. HAS WALK IN SHOWER AND SEAT. HAS BEDSIDE COMMODE SHE USES AT NIGHT. PT. VERY TENDER TO TOUCH @ MEDIAL KNEE. SLOW TO MOVE KNEE TO POSITION TO BEGIN TO STAND. PERFORMED SIT TO STAND W/ MIN ASSIST; NOTED DECREASED WB R LE D/T PN. C/O INCREASED PN W/ R KNEE FLEXION, TERMIMLA /, AND WB. PT. AMBULATED ~25' W/ ROLLATOR AND MIN ASSIST TODAY D/T R KNEE PN. NOTED DECREASED R HEEL STRIKE W/ STANCE AND DECREASED WB R LE. SLOW PACE NOTED. PT. PERFORMED 5 REPS OF R LE ROM EX'S REHANA LUNA. ANKLE PUMPS X 10. L LE ROM WFL. LIMITED R KNEE ROM TODAY D/T PN. APPLIED CP TO R KNEE AFTER SESSION TO HELP DECREASE PN/INFLAMMATION. NURSE GAVE DOSE OF TYLENOL. PT.'S FUNCTIONAL MOBILITY MORE LIMITED TODAY D/T LIKELY ACUTE FLARE OF R KNEE OA. XRAY WAS PERFORMED AND AWAITING RESULTS. PT. IS @ SIGNIFICANT RISK TO FALL @ THIS TIME D/T LIMITED R LE WB AND PN WELL DECREASED R KNEE ROM. PT. WOULD BENEFIT FROM REHAB STAY TO MAXIMIZE FUNCTIONAL POTIENTIAL TO THEN SAFELY D/C HOME W/ [facility]. WILL CONT. P.T. 5X/WK UNTIL D/C. Initialized on 08/04/23 09:38 - END OF NOTE 08/04/23 08:57 Case Management Note by Zenaida Schneider S/W PATIENT. SHE VERBALIZED AN INTEREST IN REHAB. LET HER KNOW THAT WE WOULD LOOK INTO THAT FOR HER BUT THAT WITH HER P.T. EVAL AND HER ABILITY TO WALK 100FT SHE MAY NOT QUALIFY FOR REHAB AND IF SHE DID SHE WOULD ONLY BE FOR FOR SHORT TIME. SHE DID SAY THAT SHE WANTED [facility] FOR HER REHAB IF SHE DID QUALITY. DID EXPLAIN HOME HEALTH CARE AGAIN AND SHE IS AGREEABLE TO [facility] IF NOT ABLE TO GO TO [facility]. SPOKE TO IMANI AT [facility] AND SHE STATED IT IS UNLIKELY THAT [facility] WILL APPROVE A REHAB STAY IF PATIENT ABLE TO AMBULATE 100 FT. P.T. TO REEVALUATE PT AGAIN TODAY. Initialized on 08/04/23 08:57 - END OF NOTE Assessment/Plan (1) Atrial fibrillation with RVR Current Visit: Yes Status: Acute Assessment & Plan: Atrial Fibrillation 08/02: -Monitor on Telemetry -Cardizem drip at 5mg/hr, titrate, metoprolol once rate is controlled -rate control to target goal HR <85 bpm at rest if symptomatic, goal HR <110 bpm if asymptomatic -[id number]: 7 -On coumadin for Anticoagulation -PT/INR supratherapeutic at 5.43, will hold coumadin, pharmacy consult for dosing -optimize electrolytes for goal of K at 4 and magnesium at 2 -TSH level drawn 07/29/23 WNL, no need for repeat 08/03: -Echo reviewed: EF 70% IMPRESSION: 1) NORMAL CONTRACTILITY OF THE LEFT VENTRICLE. 2) MILD LEFT ATRIAL DILATATION. 3) RIGHT ATRIAL DILATATION. 4) MILD AORTIC REGURGITATION. 5) MILD TO MODERATE MITRAL REGURGITATION. 6) MODERATE TRICUSPID REGURGITATION. 7) SEVERE PULMONARY HYPERTENSION. 8) MILD PULMONIC REGURGITATION. 9) TACHYCARDIA. -Cardizem drip d/c'd will continue with metoprolol 50mg bid with 25mg Q6h prn -Continue to hold coumadin until INR at therapeutic level -Cards consult pending, appreciate recs 08/04: -Cards following, patient started on Entresto, amlodipine d/c'd, metoprolol continued, coumadin changed to Eliquis -HR controlled Code(s): I48.91 - UNSPECIFIED ATRIAL FIBRILLATION (2) Elevated brain natriuretic peptide (BNP) level Current Visit: Yes Status: Acute Assessment & Plan: ECHO as noted, no previous history per pt of CHF Code(s): R79.89 - OTHER SPECIFIED ABNORMAL FINDINGS OF BLOOD CHEMISTRY (3) Supratherapeutic INR Current Visit: Yes Status: Acute Assessment & Plan: -INR within therapeutic range, will start on eliquis, d/c coumadin per Cards Code(s): R79.1 - ABNORMAL COAGULATION PROFILE (4) Leukocytosis, unspecified Current Visit: Yes Status: Resolved Assessment & Plan: -resolved Code(s): D72.829 - ELEVATED WHITE BLOOD CELL COUNT, UNSPECIFIED (5) Edema of lower extremity Current Visit: Yes Status: Acute Assessment & Plan: -resolved, lasix d/c'd Code(s): R60.0 - LOCALIZED EDEMA (6) Hypertension Current Visit: Yes Status: Acute Assessment & Plan: -stable Code(s): I10 - ESSENTIAL (PRIMARY) HYPERTENSION (7) Hyperlipidemia Current Visit: Yes Status: Acute Assessment & Plan: -continue atorvastatin Code(s): E78.5 - HYPERLIPIDEMIA, UNSPECIFIED (8) Diabetes mellitus Current Visit: Yes Status: Acute Assessment & Plan: -on metformin at home -A1c 7.6 -SSI low dose while IP Code(s): E11.9 - TYPE 2 DIABETES MELLITUS WITHOUT COMPLICATIONS
[2023-08-04] MEDS: ELIQUIS 2.5 MG TABLET PO SCH (21:26)
[2023-08-05 04:57] LABS: Absolute Neutrophil Ct (ANC) 11.14 x10^3/uL (1.4-6.9); BASOPHIL % 0.4 % (0.0-0.4); Basophil (Absolute #) 0.05 x10^3/uL (0-0.4); Eosinophil % 0.4 % (0.00-5.0); Eosinophil (Absolute #) 0.06 x10^3/uL (0-0.5); Hematocrit 30.1 % (35-47); Hemoglobin 9.8 g/dL (12.0-16.0); IMMATURE GRAN # 0.07 x10^3u/L (0.00-0.03); IMMATURE GRAN % 0.5 % (0.00-0.4); Lymphocyte (Absolute #) 0.74 x10^3/uL (1.0-4.6); Lymphocytes % 5.5 % (24.0-44.0); Mean Cell Volume 95.6 fL (78-100); Mean Corpuscular Hemoglobin 31.1 pg (26-32); Mean Corpuscular Hgb Concent. 32.6 g/dL (32-36); Mean Platelet Volume 10.1 fL (7.5-11.0); Monocyte (Absolute #) 1.38 x10^3/uL (0.0-1.3); Monocytes % 10.3 % (0.0-12.0); Neutrophil % 82.9 % (36.0-66.0); Platelet Count 275 x10^3/uL (150-450); Red Blood Count 3.15 x10^6/uL (4.1-5.4); Red Cell Distribution Width 13.8 % (11.5-14.0); White Blood Count 13.4 x10^3/uL (4.0-10.5)
[2023-08-05 05:10] LABS: ALBUMIN 3.3 g/dL (3.5-5.0); ALKALINE PHOSPHATASE 80 U/L (38-126); ANION GAP 11.3 MEQ/L (5-15); BLOOD UREA NITROGEN 24 mg/dL (7-17); CHLORIDE 99 mmol/L (98-107); Calcium 7.9 mg/dL (8.4-10.2); Carbon Dioxide 28 mmol/L (22-30); Creatinine 1 0.94 mg/dL (0.52-1.04); EST GLOMERULAR FILTRATION RATE > 60.0 ML/MIN; Glucose 167 mg/dL (74-106); Potassium 3.5 mmol/L (3.5-5.1); SGOT/AST 21 U/L (14-36); SGPT/ALT 19 U/L (0-35); SODIUM 135 mmol/L (137-145); Total Protein 6.9 g/dL (6.3-8.2)
[2023-08-05] MEDS: TYLENOL 325 MG PO PRN (06:00)
[2023-08-05 07:24] VITALS: BP 153/67; TEMP 97.8
[2023-08-05] MEDS: Glucophage 850 MG PO SCH (07:58)
[2023-08-05] MEDS: ECOTRIN 81 MG PO SCH (09:18)
[2023-08-05] MEDS: Lopressor 50 MG PO SCH (09:19)
[2023-08-05] MEDS: ELIQUIS 2.5 MG TABLET PO SCH (09:19)
[2023-08-05] MEDS: ENTRESTO 49 MG-51 MG TABLET PO SCH (09:19)
--- NOTE | 2023-08-05 09:22 | PCM.DS ---
Discharge Summary Date of Admission: 08/02/23 13:11 Date of Discharge: 08/05/23 Admitting Physician: ANNY HAYES MD Consults: Consults on Case 08/03/23 08:00 Consult Cardiology ROUTINE Primary Care Provider: SURINDER BRICEÑO DO <PRISCA BERGMAN - Last Filed: 08/05/23 09:16> Date of Admission: 08/02/23 13:11 Admitting Physician: ANNY HAYES MD Consults: Consults on Case 08/03/23 08:00 Consult Cardiology ROUTINE Primary Care Provider: SURINDER BRICEÑO DO <DANICA RIBERA - Last Filed: 08/05/23 17:27> Allergies <PRISCA BERGMAN - Last Filed: 08/05/23 09:16> <DANICA RIBERA - Last Filed: 08/05/23 17:27> Allergies No Known Drug Allergies Allergy (Verified 08/02/23 09:49) Hospital Summary - Hospital Course Hospital Course: is a 83 year old female with a pmhx of afib (on coumadin/metoprolol), DM2, HLD, HTN, and h/o of recent admission a week ago at [facility] for AFIB and pneumonia presented to ED 08/02/23 with complaint so shortness of breath and a fast heart rate admitted for AFIB RVR and supratherapeutic INR, initially treated with Cardizem drip, now being treated with metoprolol 50mg bid as well as metoprolol 25mg q6h prn with HR >110. HR now controlled. INR in therapeutic range, Cardiology consulted with the following changes: amlodipine has been d/c'd, Entrestro added, Eliquis will replace coumadin. Lung sounds have improved, patient still requiring oxygen which she will continue as op. Patient to discharge to SNF for rehab per pt request. She is to follow up with cardiology/pcp in one week. -New Diagnoses: AFIB/supratherapeutic INR -New Medications: Eliquis/Entresto -Medications Discontinued: amlodipine/coumadin -Follow up: pcp/cardiology -Latest Assessment and Plan: 1) Atrial fibrillation with RVR Current Visit: Yes Status: Acute Assessment & Plan: Atrial Fibrillation 08/02: -Monitor on Telemetry -Cardizem drip at 5mg/hr, titrate, metoprolol once rate is controlled -rate control to target goal HR <85 bpm at rest if symptomatic, goal HR <110 bpm if asymptomatic -[id number]: 7 -On coumadin for Anticoagulation -PT/INR supratherapeutic at 5.43, will hold coumadin, pharmacy consult for dosing -optimize electrolytes for goal of K at 4 and magnesium at 2 -TSH level drawn 07/29/23 WNL, no need for repeat 08/03: -Echo reviewed: EF 70% IMPRESSION: 1) NORMAL CONTRACTILITY OF THE LEFT VENTRICLE. 2) MILD LEFT ATRIAL DILATATION. 3) RIGHT ATRIAL DILATATION. 4) MILD AORTIC REGURGITATION. 5) MILD TO MODERATE MITRAL REGURGITATION. 6) MODERATE TRICUSPID REGURGITATION. 7) SEVERE PULMONARY HYPERTENSION. 8) MILD PULMONIC REGURGITATION. 9) TACHYCARDIA. -Cardizem drip d/c'd will continue with metoprolol 50mg bid with 25mg Q6h prn -Continue to hold coumadin until INR at therapeutic level -Cards consult pending, appreciate recs 08/04: -Cards following, patient started on Entresto, amlodipine d/c'd, metoprolol continued, coumadin changed to Eliquis -HR controlled Code(s): I48.91 - UNSPECIFIED ATRIAL FIBRILLATION (2) Elevated brain natriuretic peptide (BNP) level Current Visit: Yes Status: Acute Assessment & Plan: ECHO as noted, no previous history per pt of CHF Code(s): R79.89 - OTHER SPECIFIED ABNORMAL FINDINGS OF BLOOD CHEMISTRY (3) Supratherapeutic INR Current Visit: Yes Status: Acute Assessment & Plan: -INR within therapeutic range, will start on eliquis, d/c coumadin per Cards Code(s): R79.1 - ABNORMAL COAGULATION PROFILE (4) Leukocytosis, unspecified Current Visit: Yes Status: Resolved Assessment & Plan: -resolved Code(s): D72.829 - ELEVATED WHITE BLOOD CELL COUNT, UNSPECIFIED (5) Edema of lower extremity Current Visit: Yes Status: Acute Assessment & Plan: -resolved, lasix d/c'd Code(s): R60.0 - LOCALIZED EDEMA (6) Hypertension Current Visit: Yes Status: Acute Assessment & Plan: -stable Code(s): I10 - ESSENTIAL (PRIMARY) HYPERTENSION (7) Hyperlipidemia Current Visit: Yes Status: Acute Assessment & Plan: -continue atorvastatin Code(s): E78.5 - HYPERLIPIDEMIA, UNSPECIFIED (8) Diabetes mellitus Current Visit: Yes Status: Acute Assessment & Plan: -on metformin at home -A1c 7.6 -SSI low dose while IP I spent 45 minutes [id number] with the patient on the day of discharge performing discharge exam, discussing hospital stay and discharge instructions with patient & caregivers, preparation of discharge records, prescriptions & referral forms and addressing any questions/concerns the patient had as documented above. - Vitals & Intake/Output Vital Signs: Vital Signs Temperature 97.8 F 08/05/23 07:23 Pulse Rate 94 H 08/05/23 07:23 Respiratory Rate 18 08/05/23 07:23 Blood Pressure 153/67 08/05/23 07:23 O2 Sat by Pulse Oximetry 95 08/05/23 07:23 Intake & Output: Intake & Output 08/02/23 08/03/23 08/04/23 08/05/23 11:59 11:59 11:59 11:59 Intake Total 720 840 920 Output Total 1400 1300 200 Balance -680 -460 720 Weight 55.338 kg 54.9 kg - Lab Result Diagrams: 08/05/23 04:44 08/05/23 04:44 Lab Results-Last 24 Hrs: Lab Results-Last 24 Hours 08/04/23 08/04/23 08/04/23 Range/Units 04:00 04:00 07:01 WBC (4.0-10.5) x10^3/uL RBC (4.1-5.4) x10^6/uL Hgb (12.0-16.0) g/dL Hct (35-47) % MCV (78-100) fL MCH (26-32) pg MCHC (32-36) g/dL RDW (11.5-14.0) % Plt Count (150-450) x10^3/uL MPV (7.5-11.0) fL Gran % (36.0-66.0) % Immature Gran % (Auto) (0.00-0.4) % Nucleat RBC Rel Count (0.00-0.1) % Eos # (Auto) (0-0.5) x10^3/uL Immature Gran # (Auto) (0.00-0.03) x10^3u/L Absolute Lymphs (auto) (1.0-4.6) x10^3/uL Absolute Monos (auto) (0.0-1.3) x10^3/uL Absolute Nucleated RBC (0.00-0.01) x10^3u/L Lymphocytes % (24.0-44.0) % Monocytes % (0.0-12.0) % Eosinophils % (0.00-5.0) % Basophils % (0.0-0.4) % Absolute Granulocytes (1.4-6.9) x10^3/uL Basophils # (0-0.4) x10^3/uL PT 24.4 H (9.4-12.5) SECONDS INR 2.39 D (0.8-3.0) Sodium 136 L (137-145) mmol/L Potassium 3.9 (3.5-5.1) mmol/L Chloride 100 (98-107) mmol/L Carbon Dioxide 26 (22-30) mmol/L Anion Gap 14.1 (5-15) MEQ/L BUN 22 H (7-17) mg/dL Creatinine 0.97 (0.52-1.04) mg/dL Estimated GFR 58.4 ML/MIN Glucose 137 H (74-106) mg/dL POC Glucometer (74 to 106) mg/dL Uric Acid 6.1 H (2.6-6.0) mg/dL Calcium 8.2 L (8.4-10.2) mg/dL Total Bilirubin 0.90 (0.2-1.3) mg/dL AST 29 (14-36) U/L ALT 24 (0-35) U/L Alkaline Phosphatase 86 (38-126) U/L Serum Total Protein 7.0 (6.3-8.2) g/dL Albumin 3.4 L (3.5-5.0) g/dL 08/04/23 08/04/23 08/04/23 Range/Units 11:18 16:10 21:08 WBC (4.0-10.5) x10^3/uL RBC (4.1-5.4) x10^6/uL Hgb (12.0-16.0) g/dL Hct (35-47) % MCV (78-100) fL MCH (26-32) pg MCHC (32-36) g/dL RDW (11.5-14.0) % Plt Count (150-450) x10^3/uL MPV (7.5-11.0) fL Gran % (36.0-66.0) % Immature Gran % (Auto) (0.00-0.4) % Nucleat RBC Rel Count (0.00-0.1) % Eos # (Auto) (0-0.5) x10^3/uL Immature Gran # (Auto) (0.00-0.03) x10^3u/L Absolute Lymphs (auto) (1.0-4.6) x10^3/uL Absolute Monos (auto) (0.0-1.3) x10^3/uL Absolute Nucleated RBC (0.00-0.01) x10^3u/L Lymphocytes % (24.0-44.0) % Monocytes % (0.0-12.0) % Eosinophils % (0.00-5.0) % Basophils % (0.0-0.4) % Absolute Granulocytes (1.4-6.9) x10^3/uL Basophils # (0-0.4) x10^3/uL PT (9.4-12.5) SECONDS INR (0.8-3.0) Sodium (137-145) mmol/L Potassium (3.5-5.1) mmol/L Chloride (98-107) mmol/L Carbon Dioxide (22-30) mmol/L Anion Gap (5-15) MEQ/L BUN (7-17) mg/dL Creatinine (0.52-1.04) mg/dL Estimated GFR ML/MIN Glucose (74-106) mg/dL POC Glucometer 190 H 172 H 177 H (74 to 106) mg/dL Uric Acid (2.6-6.0) mg/dL Calcium (8.4-10.2) mg/dL Total Bilirubin (0.2-1.3) mg/dL AST (14-36) U/L ALT (0-35) U/L Alkaline Phosphatase (38-126) U/L Serum Total Protein (6.3-8.2) g/dL Albumin (3.5-5.0) g/dL 08/05/23 08/05/23 08/05/23 Range/Units 04:44 04:44 06:50 WBC 13.4 H (4.0-10.5) x10^3/uL RBC 3.15 L (4.1-5.4) x10^6/uL Hgb 9.8 L (12.0-16.0) g/dL Hct 30.1 L (35-47) % MCV 95.6 (78-100) fL MCH 31.1 (26-32) pg MCHC 32.6 (32-36) g/dL RDW 13.8 (11.5-14.0) % Plt Count 275 (150-450) x10^3/uL MPV 10.1 (7.5-11.0) fL Gran % 82.9 H (36.0-66.0) % Immature Gran % (Auto) 0.5 H (0.00-0.4) % Nucleat RBC Rel Count 0.0 (0.00-0.1) % Eos # (Auto) 0.06 (0-0.5) x10^3/uL Immature Gran # (Auto) 0.07 H (0.00-0.03) x10^3u/L Absolute Lymphs (auto) 0.74 L (1.0-4.6) x10^3/uL Absolute Monos (auto) 1.38 H (0.0-1.3) x10^3/uL Absolute Nucleated RBC 0.00 (0.00-0.01) x10^3u/L Lymphocytes % 5.5 L (24.0-44.0) % Monocytes % 10.3 (0.0-12.0) % Eosinophils % 0.4 (0.00-5.0) % Basophils % 0.4 (0.0-0.4) % Absolute Granulocytes 11.14 H (1.4-6.9) x10^3/uL Basophils # 0.05 (0-0.4) x10^3/uL PT (9.4-12.5) SECONDS INR (0.8-3.0) Sodium 135 L (137-145) mmol/L Potassium 3.5 (3.5-5.1) mmol/L Chloride 99 (98-107) mmol/L Carbon Dioxide 28 (22-30) mmol/L Anion Gap 11.3 (5-15) MEQ/L BUN 24 H (7-17) mg/dL Creatinine 0.94 (0.52-1.04) mg/dL Estimated GFR > 60.0 ML/MIN Glucose 167 H (74-106) mg/dL POC Glucometer 159 H (74 to 106) mg/dL Uric Acid (2.6-6.0) mg/dL Calcium 7.9 L (8.4-10.2) mg/dL Total Bilirubin 1.20 (0.2-1.3) mg/dL AST 21 (14-36) U/L ALT 19 (0-35) U/L Alkaline Phosphatase 80 (38-126) U/L Serum Total Protein 6.9 (6.3-8.2) g/dL Albumin 3.3 L (3.5-5.0) g/dL Micro Results-Entire Visit: Microbiology 08/02/23 15:10 Urine Culture - Final Clean Catch Midstream <10K NORMAL SKIN LENARD PROBABLE SKIN CONTAMINANT Accuchecks Date 08/05/23 Date 08/04/23 Date 08/04/23 Time 07:22 - Radiology Exams Ordered Rad Exams-Entire Visit: Radiology Procedures Category Date Time Status KNEE (1 OR 2 VIEW) Stat Exams 08/04/23 08:33 Completed - Procedures and Test Procedures and Tests throughout Hospitalization: Therapy Orders & Screens 08/03/23 06:48 Oxygen Nasal Cannula 2 lpm Comment: Diagnosis: AFIB WITH RVR 08/03/23 07:00 Respiratory Therapy Assessment DAILY Comment: Diagnosis: AFIB WITH RVR 08/03/23 12:00 PT Eval & Treat ( Order) ONCE Reason for Eval:: weakness Diagnosis: AFIB WITH RVR <PRISCA BERGMAN - Last Filed: 08/05/23 09:16> - Vitals & Intake/Output Vital Signs: Vital Signs Temperature 97.8 F 08/05/23 07:23 Pulse Rate 105 H 08/05/23 07:55 Respiratory Rate 16 08/05/23 07:55 Blood Pressure 153/67 08/05/23 07:23 O2 Sat by Pulse Oximetry 99 08/05/23 07:55 Intake & Output: Intake & Output 09/05/2008/04/23 08/05/23 08/06/23 11:59 11:59 11:59 11:59 Intake Total 720 840 920 Output Total 1400 1300 200 Balance -680 -460 720 Weight 54.9 kg - Lab Result Diagrams: 08/05/23 04:44 08/05/23 04:44 Lab Results-Last 24 Hrs: Lab Results-Last 24 Hours 08/04/23 08/05/23 08/05/23 Range/Units 21:08 04:44 04:44 WBC 13.4 H (4.0-10.5) x10^3/uL RBC 3.15 L (4.1-5.4) x10^6/uL Hgb 9.8 L (12.0-16.0) g/dL Hct 30.1 L (35-47) % MCV 95.6 (78-100) fL MCH 31.1 (26-32) pg MCHC 32.6 (32-36) g/dL RDW 13.8 (11.5-14.0) % Plt Count 275 (150-450) x10^3/uL MPV 10.1 (7.5-11.0) fL Gran % 82.9 H (36.0-66.0) % Immature Gran % (Auto) 0.5 H (0.00-0.4) % Nucleat RBC Rel Count 0.0 (0.00-0.1) % Eos # (Auto) 0.06 (0-0.5) x10^3/uL Immature Gran # (Auto) 0.07 H (0.00-0.03) x10^3u/L Absolute Lymphs (auto) 0.74 L (1.0-4.6) x10^3/uL Absolute Monos (auto) 1.38 H (0.0-1.3) x10^3/uL Absolute Nucleated RBC 0.00 (0.00-0.01) x10^3u/L Lymphocytes % 5.5 L (24.0-44.0) % Monocytes % 10.3 (0.0-12.0) % Eosinophils % 0.4 (0.00-5.0) % Basophils % 0.4 (0.0-0.4) % Absolute Granulocytes 11.14 H (1.4-6.9) x10^3/uL Basophils # 0.05 (0-0.4) x10^3/uL Sodium 135 L (137-145) mmol/L Potassium 3.5 (3.5-5.1) mmol/L Chloride 99 (98-107) mmol/L Carbon Dioxide 28 (22-30) mmol/L Anion Gap 11.3 (5-15) MEQ/L BUN 24 H (7-17) mg/dL Creatinine 0.94 (0.52-1.04) mg/dL Estimated GFR > 60.0 ML/MIN Glucose 167 H (74-106) mg/dL POC Glucometer 177 H (74 to 106) mg/dL Calcium 7.9 L (8.4-10.2) mg/dL Total Bilirubin 1.20 (0.2-1.3) mg/dL AST 21 (14-36) U/L ALT 19 (0-35) U/L Alkaline Phosphatase 80 (38-126) U/L Serum Total Protein 6.9 (6.3-8.2) g/dL Albumin 3.3 L (3.5-5.0) g/dL 08/05/23 Range/Units 06:50 WBC (4.0-10.5) x10^3/uL RBC (4.1-5.4) x10^6/uL Hgb (12.0-16.0) g/dL Hct (35-47) % MCV (78-100) fL MCH (26-32) pg MCHC (32-36) g/dL RDW (11.5-14.0) % Plt Count (150-450) x10^3/uL MPV (7.5-11.0) fL Gran % (36.0-66.0) % Immature Gran % (Auto) (0.00-0.4) % Nucleat RBC Rel Count (0.00-0.1) % Eos # (Auto) (0-0.5) x10^3/uL Immature Gran # (Auto) (0.00-0.03) x10^3u/L Absolute Lymphs (auto) (1.0-4.6) x10^3/uL Absolute Monos (auto) (0.0-1.3) x10^3/uL Absolute Nucleated RBC (0.00-0.01) x10^3u/L Lymphocytes % (24.0-44.0) % Monocytes % (0.0-12.0) % Eosinophils % (0.00-5.0) % Basophils % (0.0-0.4) % Absolute Granulocytes (1.4-6.9) x10^3/uL Basophils # (0-0.4) x10^3/uL Sodium (137-145) mmol/L Potassium (3.5-5.1) mmol/L Chloride (98-107) mmol/L Carbon Dioxide (22-30) mmol/L Anion Gap (5-15) MEQ/L BUN (7-17) mg/dL Creatinine (0.52-1.04) mg/dL Estimated GFR ML/MIN Glucose (74-106) mg/dL POC Glucometer 159 H (74 to 106) mg/dL Calcium (8.4-10.2) mg/dL Total Bilirubin (0.2-1.3) mg/dL AST (14-36) U/L ALT (0-35) U/L Alkaline Phosphatase (38-126) U/L Serum Total Protein (6.3-8.2) g/dL Albumin (3.5-5.0) g/dL Micro Results-Entire Visit: Microbiology 08/02/23 15:10 Urine Culture - Final Clean Catch Midstream <10K NORMAL SKIN LENARD PROBABLE SKIN CONTAMINANT Accuchecks Date 08/05/23 Time 07:22 - Radiology Exams Ordered Rad Exams-Entire Visit: Radiology Procedures Category Date Time Status KNEE (1 OR 2 VIEW) Stat Exams 08/04/23 08:33 Completed - Procedures and Test Procedures and Tests throughout Hospitalization: Therapy Orders & Screens 08/03/23 06:48 Oxygen Nasal Cannula 2 lpm Comment: Diagnosis: AFIB WITH RVR 08/03/23 07:00 Respiratory Therapy Assessment DAILY Comment: Diagnosis: AFIB WITH RVR 08/03/23 12:00 PT Eval & Treat ( Order) ONCE Reason for Eval:: weakness Diagnosis: AFIB WITH RVR <DANICA RIBERA - Last Filed: 08/05/23 17:27> Discharge Exam General Appearance: no apparent distress Neurologic Exam: alert, oriented x 3, cooperative Eye Exam: PERRL Ears, Nose, Throat Exam: normal ENT inspection Neck Exam: normal inspection Respiratory Exam: crackles/rales (fine crackles bLL) Cardiovascular Exam: regular rate/rhythm, normal heart sounds Gastrointestinal/Abdomen Exam: soft, normal bowel sounds Rectal Exam: deferred Back Exam: normal inspection Extremity Exam: normal inspection Skin Exam: pale <PRISCA BERGMAN - Last Filed: 08/05/23 09:16> Final Diagnosis/Problem List - Final Discharge Diagnosis/Problem (1) Atrial fibrillation with RVR Status: Chronic Code(s): I48.91 - UNSPECIFIED ATRIAL FIBRILLATION (2) Elevated brain natriuretic peptide (BNP) level Status: Acute Code(s): R79.89 - OTHER SPECIFIED ABNORMAL FINDINGS OF BLOOD CHEMISTRY (3) Supratherapeutic INR Status: Resolved Code(s): R79.1 - ABNORMAL COAGULATION PROFILE (4) Leukocytosis, unspecified Status: Resolved Code(s): D72.829 - ELEVATED WHITE BLOOD CELL COUNT, UNSPECIFIED (5) Edema of lower extremity Status: Resolved Code(s): R60.0 - LOCALIZED EDEMA (6) Hypertension Status: Chronic Code(s): I10 - ESSENTIAL (PRIMARY) HYPERTENSION (7) Hyperlipidemia Status: Chronic Code(s): E78.5 - HYPERLIPIDEMIA, UNSPECIFIED (8) Diabetes mellitus Status: Chronic Code(s): E11.9 - TYPE 2 DIABETES MELLITUS WITHOUT COMPLICATIONS <PRISCA BERGMAN - Last Filed: 08/05/23 09:16> <PRISCA BERGMAN - Last Filed: 08/05/23 09:16> <DANICA RIBERA - Last Filed: 08/05/23 17:27> - Discharge Disposition: Skilled Care [facility] Condition: Stable Prescriptions: New Sacubitril/Valsartan [Entresto 49 mg-51 mg Tablet] 1 each PO BID 30 Days #60 tablet Albuterol/Ipratropium 3ml Neb* [DUONEB 0.5-3 MG/3 ml Neb] 3 ml IH Q4HPRN PRN PRN Reason: Shortness Of Breath Apixaban [Eliquis 2.5 mg Tablet] 5 mg PO BID tablet Sacubitril/Valsartan [Entresto 49 mg-51 mg Tablet] 1 tablet PO BID tablet Metformin HCl 850 mg [Glucophage 850 MG] 850 mg PO BIDWM tablet Metoprolol Tartrate 50 mg [Lopressor 50 MG] 50 mg PO BID tablet Continue Aspirin EC 81 mg [Ecotrin 81 mg] 81 mg PO DAILY Metoprolol Tartrate 50 mg [Lopressor 50 MG] 50 mg PO BID Atorvastatin Calcium [Lipitor] 20 mg PO DAILY Metformin HCl 850 mg [Glucophage 850 MG] 850 mg PO BID Discontinued Amlodipine Besylate 5 mg [Norvasc 5 mg] 5 mg PO DAILY Warfarin Sodium 5 mg [Jantoven] 2.5 - 5 mg PO DAILY Instructions: Atrial Fibrillation (DC), Preventing falls in adults, Sacubitril and Valsartan Additional Instructions: SKILLED NURSING ORDERS: ADMIT TO LONG TERM CARE [address] [facility] ACCU CHECKS 2L/NC PT/OT EVAL AND TREAT [facility] HAS BEEN SET UP FOR PATIENT- THEY WILL CONTINUE TO FOLLOW SEE ATTACHED MED LIST Follow up with: SURINDER BRICEÑO DO [Primary Care Provider] - TIFFANY MORGAN MD [CONSULTING PHYSICIAN] - Forms: Transfer Record [employer]
[2023-08-05 12:03] VITALS: PULSE 105; RESP 16; O2SAT 99
== END 2023-08-05 10:18 ==
LOC: ED 09:20 → ICU 13:11 → MED SURG 08-03 11:15
PROVIDERS: ADMIT Internal Medicine; ATTEND Internal Medicine
DX: I48.20 Chronic atrial fibrillation, unspecified (principal); R79.89 Other specified abnormal findings of blood chemistry; R79.1 Abnormal coagulation profile; D72.829 Elevated white blood cell count, unspecified; I11.0 Hypertensive heart disease with heart failure; I50.9 Heart failure, unspecified; R60.0 Localized edema; E78.5 Hyperlipidemia, unspecified; E11.9 Type 2 diabetes mellitus without complications; D64.9 Anemia, unspecified; J18.9 Pneumonia, unspecified organism; Z79.01 Long term (current) use of anticoagulants; Z79.899 Other long term (current) drug therapy; Z20.828 Contact with and (suspected) exposure to other viral communicable diseases; Z72.0 Tobacco use
CPT/HCPCS: 36415; 71045; 73560; 80053; 81001; 82947; 83735; 83880; 84100; 84484; 84550; 85025; 85027; 85610; 85730; 87086; 93005; 93041; 93268; 93306; 94640; 94760; 94762; 96365; 96374; 96375; 97161; 97530; 99284; G0378; Q3014; J1817; J1940; J2405; A9270-GY